=== PATIENT | female | born 1935 | race Caucasian/White ===

== ENCOUNTER 2017-01-24 15:49 | Emergency (ER) | payer MEDICARE, BC ==
[~2017-01-24 15:49] MED LIST: ALBUTEROL17 GM; ATENOLOL25 MG PO; CARAFATE1 G1 PO; CITALOPRAM HBR10 M1 PO; COUMADIN2.5 MG; COUMADIN5 MG; HYDROCODONE; HYDROCODONE/APA1 TAB; LIALDA1.2 G PO; NASAL SPRAY; PRILOSEC OTC20 MG; PROTONIX40 MG PO; RESTASIS1 EAC1 OP; SYMBICORT 160-4.6 GM IH; ZETIA10 MG
[2017-01-24] MEDS ORDERED: NEXIUM40 M1 PO (16:03)
[2017-01-24 17:06] LABS: BASO % 0.3 % (0-2); EOS % 5.1 % (0-7); EOSINOPHIL ABSOLUTE COUNT 0.3 tho/cmm (0.0-0.7); HCT-HEMATOCRIT 41.8 % (34.0-49.0); HGB-HEMOGLOBIN 14.2 gm/dl (12.0-15.5); IMMATURE GRANULOCYTES ABSOLUTE 0.04 tho/cmm (0-0.03); IMMATURE GRANULOCYTES PERCENT 0.7 % (0-0.3); LYMPH % 20.8 % (20-45); LYMPH ABSOLUTE COUNT 1.3 tho/cmm (0.8-4.5); MCH (MEAN CORPUSCULAR HGB) 32.1 pg (28.0-32.0); MCV (MEAN CELL VOLUME) 94.6 fl (82.0-96.0); MEAN PLATELET VOLUME 10.8 cmc (9.4-12.4); MONO % 11.9 % (0-12); MONOCYTE ABSOLUTE COUNT 0.7 tho/cmm (0.0-1.2); NEUTROPHIL ABSOLUTE COUNT 3.7 tho/cmm (1.6-8.0); NEUTROPHIL-AUTOMATED 3.7 tho/cmm (1.6-8.0); NEUTROPHILS % 61.2 % (40-80); PLATELET COUNT 168 tho/cmm (150-450); RED BLOOD COUNT 4.42 mil/cmm (4.00-5.20); RED CELL DISTRIBUTION WIDTH 13.3 % (12.4-16.4); WHITE BLOOD COUNT 6.1 tho/cmm (4.0-10.0)
[2017-01-24 17:09] LABS: URINE BILIRUBIN NEGATIVE (NEG); URINE BLOOD NEGATIVE (NEG); URINE GLUCOSE (UA) NEGATIVE (NEG); URINE KETONE NEGATIVE (NEG); URINE LEUKOCYTE ESTERASE NEGATIVE (NEG); URINE NITRITE NEGATIVE (NEG); URINE PROTEIN NEGATIVE (NEG); URINE SPECIFIC GRAVITY 1.005 (1.003-1.030)
[2017-01-24 17:12] LABS: URINE APPEARANCE CLEAR; URINE COLOR YELLOW
[2017-01-24 17:23] LABS: BLOOD UREA NITROGEN 17 mg/dl (6-24); CARBON DIOXIDE-VENOUS 22 mmol/L (22-32); CHLORIDE 110 mmol/l (96-110); CREATININE 0.89 mg/dl (0.50-1.10); GLUCOSE 113 mg/dL (70-110); SODIUM 143 mmol/L (135-145); eGFR VALUE FOR BLACK 71 mL/Min
[2017-01-24 17:24] LABS: ANION GAP 15 mmol/L (0-20)
[2017-01-24] MEDS ORDERED: TRAMADOL HCL50 M2 PO (19:47)
== END 2017-01-24 19:50 ==
LOC: EDMED 15:49
PROVIDERS: Emergency Medicine
DX: M54.2 Cervicalgia (principal); M25.511 Pain in right shoulder; J45.909 Unspecified asthma, uncomplicated; I10 Essential (primary) hypertension; Z85.038 Personal history of other malignant neoplasm of large intestine; Z79.899 Other long term (current) drug therapy